=== PATIENT | female | born 1980 | race Caucasian/White ===

== ENCOUNTER 2019-02-13 16:20 | Emergency (ER) | payer OTHER ==
[2019-02-13 16:33] VITALS: BP 129/78
--- NOTE | 2019-02-13 17:04 | UC ---
Lower Extremity/Ankle HPI - HPI Summary HPI Summary: 38 yo female presents with LEFT ankle injury. 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 Had immediate pain followed by swelling. She is unable to weight bear. Has not taken anything OTC for her symptoms. Denies numbness or tingling. - History of Current Complaint Chief Complaint: UCLowerExtremity Stated Complaint: ANKLE INJURY Time Seen by Provider: 02/13/19 17:04 Hx Obtained From: Patient Onset/Duration: Sudden Onset Severity Initially: Severe Severity Currently: Severe Pain Intensity: 9 Pain Scale Used: 0-10 Numeric Alleviating Factor(s): Rest, Elevation Able to Bear Weight: No - Allergies/Home Medications Allergies/Adverse Reactions: Allergies Allergy/AdvReac Type Severity Reaction Status Date / Time tetracycline Allergy Intermediate Rash Verified 02/13/19 16:33 ENVIRONMENTAL Allergy Rash Uncoded 06/30/15 09:55 PMH/Surg Hx/FS Hx/Imm Hx - Additional Past Medical History Additional PMH: None - Surgical History Surgical History: Yes Surgery Procedure, Year, and Place: 2002 C SECTION [facility] [place]. TONSILLECTOMY AND ADENOIDECTOMY A CHILD. RIGHT FINGER EXPLORATORY 08/2013 [facility] [place] leap 10/19 - Family History Known Family History: Positive: Cardiac Disease, Hypertension, Diabetes - Social History Lives: With Family Alcohol Use: Occasionally Substance Use Type: None Smoking Status (MU): Heavy Every Day Tobacco Smoker Type: Cigarettes Amount Used/How Often: 1/2 PPD Length of Time of Smoking/Using Tobacco: 16 YEARS Have You Smoked in the Last Year: Yes Household Exposure Type: Cigarettes Review of Systems All Other Systems Reviewed And Are Negative: No Constitutional: Positive: Negative Skin: Positive: Negative Respiratory: Positive: Negative Cardiovascular: Positive: Negative Neurovascular: Positive: Negative Musculoskeletal: Positive: Other: - Left ankle pain Neurological: Positive: Negative Psychological: Positive: Negative Physical Exam - Summary Physical Exam Summary: GENERAL: NAD. WDWN. No pain distress. SKIN: No rashes, sores, lesions, or open wounds. CHEST: No accessory muscle use. Breathing comfortably and in no distress. CV: Pulses intact PT and DP. Cap refill <2seconds MSK: LEFT ANKLE: Moderate edema about entire lateral malleolus, posterolateral malleolus, and dorsal midfoot. Refuses to move ankle due to pain, but moves all toes. TTP about entire ankle joint. Negative Landing test. NEURO: Alert. Sensations intact and symmetric B/L LEs PSYCH: Age appropriate behavior. Triage Information Reviewed: Yes Vital Signs: Initial Vital Signs Temp 96.7 F 02/13/19 16:29 Pulse 86 02/13/19 16:29 Resp 19 02/13/19 16:29 BP 129/78 02/13/19 16:29 Pulse Ox 99 02/13/19 16:29 Vital Signs Reviewed: Yes Diagnostics - Radiology XR FOOT Radiology Interpretation Completed By: Radiologist Summary of Radiographic Findings: IMPRESSION: SOFT TISSUE SWELLING SURROUNDING THE ANKLE JOINT WITHOUT RADIOGRAPHICALLY APPARENT FRACTURE OR DISLOCATION INVOLVING THE LEFT FOOT OR ANKLE. XR ANKLE Radiology Interpretation Completed By: Radiologist Summary of Radiographic Findings: IMPRESSION: SOFT TISSUE SWELLING SURROUNDING THE ANKLE JOINT WITHOUT RADIOGRAPHICALLY APPARENT FRACTURE OR DISLOCATION INVOLVING THE LEFT FOOT OR ANKLE. Lower Extremity Course/Dx - Course Course Of Treatment: XR as above. Discussed results with pt. Suspect sprain, but given her degree of edema and pain - recommend close Ortho f /u for occult fracture. Will place her in an ANGELINE wrap, gel splint, and have her use crutches until able to see Ortho within 1 week. - Differential Dx/Diagnosis Provider Diagnosis: Left ankle sprain Discharge ED - Sign-Out/Discharge Documenting (check all that apply): Patient Departure All imaging exams completed and their final reports reviewed: Yes - Discharge Plan Condition: Stable Disposition: HOME Patient Education Materials: Ankle Sprain (ED) Referrals: Josias Huizar MD [Primary Care Provider] - Boyd Prince MD [Medical Doctor] - 3 Days Additional Instructions: If you develop a fever, shortness of breath, chest pain, new or worsening symptoms - please call your PCP or go to the ED immediately. 1) Rest, Ice, and elevate your ankle intermittently throughout the day to decrease pain and swelling 2) Use the ANGELINE wrap, gel splint, and crutches as needed for comfort 3) Your X-Ray was negative for a fracture today, but given your degree of pain and areas of swelling - I recommend that you call Orthopedics and schedule an appointment for a recheck within 1 week - Billing Disposition and Condition Condition: STABLE Disposition: Home
== END 2019-02-13 18:30 | disposition home or self-care (01) ==
LOC: UCEAST 16:20
DX: S93.402A Sprain of unspecified ligament of left ankle, initial encounter (principal); X50.0XXA Overexertion from strenuous movement or load, initial encounter; Y93.01 Activity, walking, marching and hiking; Y92.480 Sidewalk as the place of occurrence of the external cause; Y99.8 Other external cause status; F17.210 Nicotine dependence, cigarettes, uncomplicated
CPT/HCPCS: 99213; G0463